=== PATIENT | male | born 1950 | race Caucasian/White ===

== ENCOUNTER 2019-08-10 21:00 | Inpatient (IN) | payer OTHER, MEDICARE ==
--- OUTSIDE RECORDS SUMMARY | 2019-08-10 21:02 | XMS REPORT | Summary of Care ---
:1950 Author Organization [facility] Address [address] [place] [address] Care Team Providers Name Role Phone Hao Horta Primary Care Provider Reason for Referral Radiology Services (Routine) Status Reason Specialty Diagnoses / Referred By Referred To Procedures Contact Contact New Request Diagnostic Diagnoses Left wrist pain Geoffrey Rudolph Radiology Procedures XR WRIST <3 VW LEFT MD Kiara [address] [place] [address] [place] [address] Reason for Visit Reason Comments Wrist Pain Left wrist pain x 1 year old Encounter Details Date Type Department Care Team Description 07/01/2019 Office Visit [facility] Orthopaedic Geoffrey Rudolph Left wrist pain Surgery- Jackson Craig MD (Primary Dx) [address] [facility], [address] [place] [address] [place] [address] [place], [place] [phone] Allergies No Known Allergiesdocumented as of this encounter (statuses as of 07/01/2019) Medications Medication Sig Dispensed Refills Start Date End Date Status metoprolol tartrate Take 25 mg by 2 07/05/2015 Active (LOPRESSOR) 25 mg mouth 2 (two) tablet times daily. ELIQUIS 5 mg tablet TK 1 T PO Q 12 H 0 02/05/2018 Active atorvastatin 40 mg TK 1/2 T PO HS 0 02/05/2018 Active tablet clopidogrel 75 mg TK 1 T PO D 2 02/21/2018 Active tablet fenofibrate 145 mg TK 1 T PO D 2 02/21/2018 Active tablet lidocaine-prilocaine APPLY 2 TO 3 GRAMS 12 03/10/2018 Active 2.5-2.5 % cream TO THE AFFECTED AREA EVERY 12 HOURS NEEDED lisinopril 5 mg tablet TK 1 T PO QD 0 02/21/2018 Active metoprolol succinate TK 1 T PO Q 12 H 0 02/05/2018 Active XL 50 mg 24 hr tablet SLICK PEN NEEDLE 32 INJECT SC QD 0 02/22/2018 Active gauge x 5/32" Ndle metoprolol succinate TK 1 T PO QD 0 01/15/2018 Active XL 25 mg 24 hr tablet diclofenac 75 mg EC Take 1 tablet by 60 tablet 1 03/18/2018 Active tablet mouth 2 (two) times daily with meals. Diclofenac Sodium Apply 2mg to 4mg 100 g 1 07/01/2019 Active (VOLTAREN) 1 % to affected area 4 gelIndications: Left times daily wrist pain documented as of this encounter (statuses as of 07/01/2019) Active Problems Not on filedocumented as of this encounter (statuses as of 07/01/2019) Social History Tobacco Use Types Packs/Day Years Used Date Former Smoker Smokeless Tobacco: Never Used Alcohol Use Drinks/Week oz/Week Comments No 0 Standard drinks or equivalent 0.0 Sex Assigned at Date Recorded Not on file Job Start Date Occupation Industry Not on file Not on file Not on file Travel History Travel Start Travel End No recent travel history available. documented as of this encounter Last Filed Vital Signs Vital Sign Reading Time Taken Comments Blood Pressure 99/64 07/01/2019 10:22 AM CDT Pulse 54 07/01/2019 10:22 AM CDT Temperature - - Respiratory Rate 18 07/01/2019 10:22 AM CDT Oxygen Saturation - - Inhaled Oxygen Concentration - - Weight 107 kg (236 lb) 07/01/2019 10:22 AM CDT Height 175.3 cm (5' 9") 07/01/2019 10:22 AM CDT Body Mass Index 34.85 07/01/2019 10:22 AM CDT documented in this encounter Progress Notes Geoffrey Rudolph MD - 07/01/2019 10:15 AM CDT Tyrone Orozco is a 68 year old male Chief Complaint Patient presents with Wrist Pain Left wrist pain x 1 year old Vitals: 07/01/19 1022 BP: 99/64 BP Location: Right arm Patient Position: Sitting BP CUFF SIZE: Adult Large Pulse: 54 Resp: 18 Weight: 107 kg (236 lb) Height: 69" (175.3 cm) [facility] [address] [place] [address] [address] Patient presents with left wrist pain x 1 year No injury All Vitals taken, allergies and all medications reviewed, fall risk assessed. Pain level 7/10. ALYSSA TRISTAN MA 07/01/2019 10:29 AM Tyrone Orozco is a 68 year old male. 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 Wrist Pain The pain is present in the left wrist. This is a chronic problem. The current episode started more than 1 year ago. There has been no history of extremity trauma. The problem occurs constantly. The problem has been gradually worsening. The quality of the pain is described as aching, sharp and pounding. The pain is at a severity of 6/10. The pain is moderate. Associated symptoms include an inability to bear weight, joint locking, joint swelling, a limited range of motion and stiffness. The symptoms are aggravated by activity. He has tried rest, movement and acetaminophen for the symptoms. The treatment provided mild relief. Allergies Tyrone has No Known Allergies. Medications Outpatient Medications Prior to Visit Medication Sig Dispense Refill atorvastatin 40 mg tablet TK 1/2 T PO HS 0 ELIQUIS 5 mg tablet TK 1 T PO Q 12 H 0 lidocaine-prilocaine 2.5-2.5 % cream APPLY 2 TO 3 GRAMS TO THE AFFECTED AREA EVERY 12 HOURS NEEDED 12 lisinopril 5 mg tablet TK 1 T PO QD 0 metoprolol succinate XL 50 mg 24 hr tablet TK 1 T PO Q 12 H 0 clopidogrel 75 mg tablet TK 1 T PO D 2 diclofenac 75 mg EC tablet Take 1 tablet by mouth 2 (two) times daily with meals. 60 tablet 1 fenofibrate 145 mg tablet TK 1 T PO D 2 metoprolol succinate XL 25 mg 24 hr tablet TK 1 T PO QD 0 SLICK PEN NEEDLE 32 gauge x 5/32" Ndle INJECT SC QD 0 metoprolol tartrate (LOPRESSOR) 25 mg tablet Take 25 mg by mouth 2 (two) times daily. 2 No facility-administered medications prior to visit. Histories Past Medical History: Diagnosis Date Atrial fibrillation events Bladder carcinoma Past Surgical History: Procedure Laterality Date OTHER 2014 ablation to fix A-FIB OTHER removal of carcinoma on bladder Social History Socioeconomic History Marital status: Spouse name: Not on file Number of children: Not on file Years of education: Not on file Highest education level: Not on file Occupational History Not on file Social Needs Financial resource strain: Not on file Food insecurity: Worry: Not on file Inability: Not on file Transportation needs: Medical: Not on file Non-medical: Not on file Tobacco Use Smoking status: Former Smoker Smokeless tobacco: Never Used Substance and Sexual Activity Alcohol use: No Alcohol/week: 0.0 oz Drug use: Not on file Sexual activity: Not on file Lifestyle Physical activity: Days per week: Not on file Minutes per session: Not on file Stress: Not on file Relationships Social connections: Talks on phone: Not on file Gets together: Not on file Attends lutheran service: Not on file Active member of club or organization: Not on file Attends meetings of clubs or organizations: Not on file Relationship status: Not on file Intimate partner violence: Fear of current or ex partner: Not on file Emotionally abused: Not on file Physically abused: Not on file Forced sexual activity: Not on file Other Topics Concern Not on file Social History Narrative Not on file Family History Problem Relation Age of Onset Heart Father Review of Systems Constitutional: Negative. HENT: Negative. Eyes: Negative. Respiratory: Negative. Breasts: Negative. Cardiovascular: Negative. Gastrointestinal: Negative. Genitourinary: Negative. Musculoskeletal: Positive for joint swelling and stiffness. Skin: Negative. Neurological: Negative. Psychiatric/Behavioral: Negative. Endocrine: Endocrine negative Vital Signs BP 99/64 (BP Location: Right arm, Patient Position: Sitting, BP CUFF SIZE: Adult Large) | Pulse 54| Resp 18 | Ht 69" (175.3 cm) | Wt 107 kg (236 lb) | BMI 34.85 kg/m Physical Exam Musculoskeletal: Left wrist: He exhibits decreased range of motion, tenderness and bony tenderness. He exhibits no swelling, no effusion, no crepitus, no deformity and no laceration. General: Well-developed well-nourished oriented to person place and time HEENT normocephalic atraumatic atraumatic pupils equal round reactive to light extraocular muscles intact Cervical thoracic and lumbar spine without focal deficit normal kyphosis and lordosis Chest clear to auscultation and percussion Cardiovascular regular rate and rhythm without gallop rub or murmur soft without organomegaly Normal bowel sounds Neurologic: Focal myotome or dermatomal deficits Vascular: Intact symmetrical bilateral upper and lower extremities Skin without stasis varicosities or breakdown Extremities without cyanosis clubbing or edema Lymphatics no peripheral lymphedema Psych normal mood and affect. Neurovascular function is intact. To include brisk capillary refill warm pink skin active motor function and sensory function intact. Nursing note and vitals reviewed. 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 Patient placed into a velcro wrist brace to be worn for comfort. He should rest for sometime to allow the pain to subside. Prescription OD diclofenac gel for topical application to pain site. Follow up prn. documented in this encounter Plan of Treatment Health Maintenance Due Date Last Done Comments HEPATITIS C (HCV) SCREEN 1950 DTaP,Tdap,and Td Vaccines (1 - Tdap) 1969 COLONOSCOPY 2000 Zoster Recombinant Vaccine (SHINGRIX) (1 of 2) 2000 LUNG CANCER SCREEN: Recommended for age 55-80 with 30 + 2005 pack year history Medicare Wellness Visit 2015 PNEUMOCOCCAL VACCINES 65+ (1 of 2 - PCV13) 2015 INFLUENZA VACCINE 07/31/2019 documented as of this encounter Results XR WRIST <3 VW LEFT (07/01/2019 10:26 AM CDT) Specimen Narrative Performed At [facility] PACS Performing Organization Address City/State/Zipcode Phone Number PACS documented in this encounter Visit Diagnoses Diagnosis Left wrist pain - Primary Pain in joint, forearm documented in this encounter Insurance Payer Benefit Plan / Subscriber ID Effective Phone Address Type Group Dates MEDICARE MEDICARE PART xxxxxxxxxx 2015-Pr [phone] [address] Medicare A & B esent [id number] [place] [id number] [facility] [id number] 2019-Pre [address] Medicare HEALTHCARE HEALTHCARE sent [id number] Supplement MEDICARE [place] SUPPLEMENT [place] [id number] ([place]) [place] [address] documented as of this encounter
--- OUTSIDE RECORDS SUMMARY | 2019-08-10 21:02 | XMS REPORT | Summary of Care ---
:1950 Author Organization [facility] - [facility] Address [address] [place] [address] Care Team Providers Name Role Phone Hao Horta Primary Care Provider Encounter Details Date Type Department Care Team Description 07/01/2019 Orders Only [facility] Doctor Unassigned, No [address] [facility] [place] [address] [address] [place] [address] Allergies No Known Allergiesdocumented as of this [...] mouth 2 (two) times daily with meals. documented as of this encounter (statuses as [...] of this encounter Last Filed Vital Signs Not on filedocumented in this encounter Plan of Treatment Date Type Specialty Care Team Description 07/01/2019 Office Visit Orthopedic Surgery Geoffrey Rudolph MD [address] [place] [phone] Health Maintenance Due Date Last Done Comments [...] VACCINE 07/31/2019 documented as of this encounter Procedures Procedure Name Priority Date/Time Associated Diagnosis Comments CONSENT/REFUSAL FOR Routine 07/01/2019 10:11 AM DIAGNOSIS AND TREATMENT CDT ASSIGNMENT OF BENEFITS Routine 07/01/2019 10:10 AM CDT documented in this encounter Results Not on filedocumented in this encounter Insurance Payer Benefit Plan / Subscriber ID Effective Dates Phone Address Type Group MEDICARE MEDICARE PART xxxxxxxxxx 2015-Layla [phone] [address] Medicare A & B nt 2 [id number] [place] [id number] documented as of this encounter
--- OUTSIDE RECORDS SUMMARY | 2019-08-10 21:02 | XMS REPORT | Summary of Care ---
:1950 Author Organization [facility] - [facility] Address [address] [place] [address] Care Team Providers Name Role Phone Hao Horta Primary Care Provider Reason for Referral Radiology Services (Routine) Status Reason Specialty Diagnoses / Referred By Referred To Procedures Contact Contact New Request Diagnostic Diagnoses Left wrist pain Geoffrey Rudolph Radiology Procedures XR WRIST <3 VW LEFT MD Kiara [address] [place] [address] [place] [address] [place] [address] Reason for Visit Reason Comments Wrist Pain Left wrist pain x 1 year old Encounter Details Date Type Department Care Team Description 07/01/2019 Office Visit [facility] Orthopaedic Geoffrey Rudolph Left wrist pain Surgery- Jackson Craig MD (Primary Dx) [address] [facility], [address] [place] [address] [place] [phone] Allergies No Known Allergiesdocumented as of [...] kg (236 lb) Height: 69" (175.3 cm) [facility] [address] [place] [address] [address] Patient presents with left wrist [...] file Gets together: Not on file Attends uatsdin service: Not on file Active member of [...] BOX Medicare A & B esent [id number] [place] [phone] [facility] [id number] 2019-Pre [address] Medicare HEALTHCARE HEALTHCARE sent [id number] Supplement MEDICARE [place] SUPPLEMENT [place]JAS [id number] ([place]) [place] [address] documented as of this encounter
--- OUTSIDE RECORDS SUMMARY | 2019-08-10 21:03 | XMS REPORT ---
:1950 Author Organization [facility] Address [address] [place] [address] Dr. Calix [address] [place] [address] Care Team Providers Name Role Phone Unavailable Unavailable Unavailable Problems This patient has no known problems. Allergies, Adverse Reactions, Alerts This patient has no known allergies or adverse reactions. Medications This patient has no known medications.
--- OUTSIDE RECORDS SUMMARY | 2019-08-10 21:03 | XMS REPORT | Summary of Care ---
:1950 Author Organization [facility] Address [address] [place] [address] Care Team Providers Name Role Phone Hao Horta Primary Care Provider Reason for Visit Reason Comments Abdominal Pain mid abdomen since 130pm 08/10/19 Encounter Details Date Type Department Care Team Description 08/10/2019 Nurse Visit [facility] Unknown, Attending Periumbilical abdominal Urgent Care Nurse, [facility] pain (Primary Dx) [address] [place] [phone] Allergies No Known Allergiesdocumented as of this encounter (statuses as of 08/10/2019) Medications Medication Sig Dispensed Refills Start Date [...] as of this encounter (statuses as of 08/10/2019) Active Problems Not on filedocumented as of this encounter (statuses as of 08/10/2019) Social History Tobacco Use Types Packs/Day Years [...] Sign Reading Time Taken Comments Blood Pressure 163/83 08/10/2019 8:35 PM CDT Pulse 60 08/10/2019 8:35 PM CDT Temperature 36.4 C (97.6 F) 08/10/2019 8:35 PM CDT Respiratory Rate 18 08/10/2019 8:35 PM CDT Oxygen Saturation 98% 08/10/2019 8:35 PM CDT Inhaled Oxygen Concentration - - Weight 108.4 kg (239 lb) 08/10/2019 8:35 PM CDT Height 175.3 cm (5' 9") 08/10/2019 8:35 PM CDT Body Mass Index 35.29 08/10/2019 8:35 PM CDT documented in this encounter Progress Notes Elzbieta Contreras, RN - 08/10/2019 8:15 PM CDT complaining of Chief Complaint Patient presents with Abdominal Pain mid abdomen since 130pm 08/10/19 . Patient reports since 1330 08/10/19 intermittent dull deep pain that comes in waves. Patient reports history of Patient AAOx4, ambulatory, eupneic, skin pink/warm/dry, no acute distress noted. BP (!) 163/83 | Pulse 60 | Temp 36.4 C (97.6 F) (Oral) | Resp 18 | Ht 5 ' 9" (1.753 m) | Wt 239 lb (108.4 kg) | SpO2 98% | BMI 35.29 kg/m Patient encouraged to seek emergency medical treatment at local emergency room for further evaluation. Case discussed with MD Tom who agrees with treatment plan recommendations. Patient verbalizesunderstanding and states he will be seen at [facility]. Ambulance transport by 911 EMS offered to patient but refused. Left via private vehicle with SO Patient leaves urgent care @ 8:30 en route to [facility] AAOx4, ambulatory, in no acute distress. documented in this encounter Plan of Treatment [...] of 2 - PCV13) 2015 INFLUENZA VACCINE (#1) 2019 documented as of this encounter Results Not on filedocumented in this encounter Visit Diagnoses Diagnosis Periumbilical abdominal pain - Primary Abdominal pain, periumbilic documented in this encounter Insurance Payer Benefit Plan / Subscriber ID Effective Phone Address Type Group Dates MEDICARE MEDICARE PART xxxxxxxxxxx 2015-Pr [phone] [address] Medicare A & B esent [id number] [place] [id number] [facility] [id number] 2019-Pre [address] Medicare HEALTHCARE HEALTHCARE sent [id number] Supplement MEDICARE [place] SUPPLEMENT [place] [id number] documented as of this encounter
--- OUTSIDE RECORDS SUMMARY | 2019-08-10 21:03 | XMS REPORT | Summary of Care ---
:1950 Author Organization [facility] Address [address] [place] [address] Care Team Providers Name Role Phone Hao Horta Primary Care Provider Reason for Visit Radiology Services (Routine) Status Reason Specialty Diagnoses / Referred By Referred To Procedures Contact Contact New Request Diagnostic Diagnoses Left wrist pain Geoffrey Rudolph Radiology Procedures XR WRIST <3 VW LEFT MD Kiara [address] [place] [address] Encounter Details Date Type Department Care Team Description 07/01/2019 [facility] [address] [place] [address] [place], [place] [phone] Allergies No Known Allergiesdocumented as of this encounter (statuses as of 07/02/2019) Medications Medication Sig Dispensed Refills Start Date [...] as of this encounter (statuses as of 07/02/2019) Active Problems Not on filedocumented as of this encounter (statuses as of 07/02/2019) Social History Tobacco Use Types Packs/Day Years [...] filedocumented in this encounter Plan of Treatment Health [...] Procedure Name Priority Date/Time Associated Diagnosis Comments XR WRIST <3 VW LEFT Routine 07/01/2019 10:26 AM Left wrist pain Results for this CDT procedure are in the results section. documented in this encounter Results XR WRIST <3 VW LEFT (07/01/2019 10:26 AM CDT) Specimen Narrative Performed At [facility] PACS Performing Organization Address City/State/Zipcode Phone Number PACS documented in this encounter Visit Diagnoses Diagnosis Left wrist pain Pain in joint, forearm documented in this encounter Insurance Payer Benefit Plan / Subscriber ID Effective Phone Address Type Group Dates MEDICARE MEDICARE PART xxxxxxxxxx 2015-Pr [phone] [address] Medicare A & B esent [id number] [place] [phone] [facility] [id number] 2019-Pre [address] Medicare HEALTHCARE HEALTHCARE sent [id number] Supplement MEDICARE [place] SUPPLEMENT [place] [id number] documented as of this encounter
[2019-08-10] MEDS ORDERED: NA CHLORIDE 0.9% 1,000 ML ONE (21:55)
[2019-08-10] MEDS ORDERED: MORPHINE 4 MG/ML SYR ONE (21:55)
[2019-08-10] MEDS ORDERED: ONDANSETRON 4 MG/2 ML VIAL ONE (21:55)
[2019-08-10 22:09] LABS: Absolute Lymphocytes (CBC) 1.7 K/uL (0.7-4.9); Basophils % 0.3 % (0-1.3); Hematocrit 48.7 % (39.6-49.0); Lymphocytes % 10.9 % (15.3-44.8); MPV 9.6 fL (7.6-11.3); RBC Red Blood Cell Count 5.87 M/uL (4.33-5.43)
[2019-08-10 22:27] LABS: Albumin 4.3 g/dL (3.4-5.0); Bilirubin Direct 0.2 mg/dL (0-0.2); Bilirubin Total 0.7 mg/dL (0.2-1.0); Potassium 3.9 mmol/L (3.5-5.1); Protein, Total 7.5 g/dL (6.4-8.2)
--- NOTE | 2019-08-10 23:01 | RAD REPORT ---
EXAM DESCRIPTION: US - Abdomen Exam Limited - 08/10/2019 10:12 pm CLINICAL HISTORY: epigastric abdominal pain COMPARISON: <Comparisons> FINDINGS: The gallbladder demonstrates no gallstones. No pericholecystic fluid or gallbladder wall t hickening. The common bile duct is normal measuring 4 mm. The liver demonstrates no findings of intrahepatic biliary dilatation. IMPRESSION: Unremarkable examination.
[2019-08-11] MEDS ORDERED: METRONIDAZOLE 500mg IVPB 500 MG/100 ML BAG IV ONE (00:13)
[2019-08-11] MEDS ORDERED: MORPHINE 4 MG/ML SYR ONE (00:13)
[2019-08-11] MEDS ORDERED: CIPROFLOXACIN 400mg IV 400 MG/200 ML BAG IV ONE (00:13)
[2019-08-11] MEDS ORDERED: NA CHLORIDE 0.9% 500 ML ONE (00:13)
--- NOTE | 2019-08-11 00:15 | ER ---
Nurse's Notes [facility] Name: Tyrone Orozco Age: 68 yrs Sex: Male : 1950 Arrival Date: 08/10/2019 Time: 21:18 Bed 24 Private MD: Diagnosis: Bowel Obstruction Presentation: 08/10 21:22 Presenting complaint: Patient states: upper abd cramping that began today at 1400. Pt aa5 denies nausea/vomiting/diarrhea. Transition of care: patient was not received from another setting of care. Onset of symptoms was August 10, 2019. Risk Assessment: Do you want to hurt yourself or someone else? Patient reports no desire to harm self or others. Initial Sepsis Screen: Does the patient meet any 2 criteria? No. Patient's initial sepsis screen is negative. Does the patient have a suspected source of infection? No. Patient's initial sepsis screen is negative. Care prior to arrival: None. 21:22 Acuity: SHRUTI 3 aa5 21:22 Method Of Arrival: Ambulatory aa5 Historical: - Allergies: 21:24 No Known Allergies; aa5 - PMHx: 21:24 Atrial Fib; Bladder Cancer; Myocardial infarction; aa5 - PSHx: 21:24 Hernia repair; Bladder tumors removed; Heart stents; aa5 - Immunization history:: Adult Immunizations unknown. - Social history:: Smoking status: Patient/guardian denies using tobacco. - Ebola Screening: : No symptoms or risks identified at this time. Screenin:58 Abuse screen: Denies threats or abuse. Denies injuries from another. Nutritional rv screening: No deficits noted. Tuberculosis screening: No symptoms or risk factors identified. Fall Risk None identified. Assessment: 21:58 General: Appears in no apparent distress. uncomfortable, Behavior is calm, cooperative. rv Pain: Complains of pain in abdomen. Neuro: Level of Consciousness is awake, alert, obeys commands, Oriented to person, place, time, situation. Cardiovascular: Patient's skin is warm and dry. Respiratory: Airway is patent. GI: Bowel sounds present X 4 quads. Abd is soft and non tender X 4 quads. : No signs and/or symptoms were reported regarding the genitourinary system. EENT: No signs and/or symptoms were reported regarding the EENT system. Derm: Skin is intact. Musculoskeletal: No signs and/or symptoms reported regarding the musculoskeletal system. Vital Signs: 21:24 BP 139 / 60; Pulse 58; Resp 18 S; Temp 98.2(O); Pulse Ox 94% on R/A; Weight 108.86 kg aa5 (R); Height 5 ft. 9 in. (175.26 cm) (R); Pain 6/10; 23:07 BP 113 / 69; Pulse 58; Resp 18; Pulse Ox 98% on R/A; mg2 08/11 00:00 BP 117 / 70; Pulse 57; Resp 16; Pulse Ox 97% on R/A; rv 01:41 BP 105 / 58; Pulse 58; Resp 15; Pulse Ox 97% on R/A; rv 08/10 21:24 Body Mass Index 35.44 (108.86 kg, 175.26 cm) aa5 ED Course: 08/10 21:18 Patient arrived in ED. aa5 21:23 Triage completed. aa 21:23 Arm band placed on. aa 21:29 Peng Rose PA is PHCP. [facility] 21:29 Jarocho Winn MD is Attending Physician. [facility] 21:36 Jori Serna RN is Primary Nurse. rv 21:57 Initial lab(s) drawn, by ny, sent to lab. Inserted saline lock: 20 gauge in right rv antecubital area, using aseptic technique. Blood collected. 21:58 Patient has correct armband on for positive identification. Bed in low position. Call rv light in reach. Side rails up X 1. Pulse ox on. NIBP on. 22:13 US Abdomen Limited In Process Unspecified. EDMS 22:33 EKG done, by ED staff. lt1 22:[address] via wheelchair. eh 22:50 CT completed. Patient tolerated procedure well. Patient moved back from CT. eh 23:13 CT Abd/Pelvis - IV Contrast Only In Process Unspecified. EDMS 08/11 00:13 Thao Serrano MD is Hospitalizing Provider. [facility] 00:30 No provider procedures requiring assistance completed. NGT: inserted 16 Fr. via right rv nare. verified placement of air over stomach, verified return of gastric contents, to intermittent suction. Returned gastric contents. Patient tolerated well. 00:30 Patient admitted, IV remains in place. rv Administered Medications: 08/10 21:56 Drug: NS 0.9% 1000 ml Route: IV; Rate: 1 bolus; Site: right antecubital; rv 08/11 01:33 Follow up: IV Status: Completed infusion; IV Intake: 100ml rv 08/10 21:57 Drug: Zofran 4 mg Route: IVP; Site: right antecubital; rv 08/11 01:37 Follow up: Response: No adverse reaction rv 08/10 21:57 Drug: morphine 4 mg {Note: RASS 0.} Route: IVP; Site: right antecubital; rv 08/11 01:38 Follow up: Response: Marked relief of symptoms; RASS: Alert and Calm (0) rv 00:30 Drug: Cipro 400 mg Volume: 200 ml; Route: IVPB; Infused Over: 60 mins; Site: right rv antecubital; 01:33 Follow up: IV Status: Completed infusion rv 00:30 Drug: Flagyl 500 mg Volume: 100 ml; Route: IVPB; Rate: 200 ml/hr; Infused Over: 30 rv mins; Site: right antecubital; 01:37 Follow up: IV Status: Completed infusion rv 00:30 Drug: morphine 4 mg {Note: RASS 0.} Route: IVP; Site: right antecubital; rv 01:38 Follow up: Response: Marked relief of symptoms rv Intake: 01:33 IV: 100ml; Total: 100ml. rv Outcome: 00:13 Decision to Hospitalize by Provider. [facility] 01:39 Admitted to Tele accompanied by nurse, via wheelchair, room 412, with chart, Report rv called to TESSY DALEY 01:39 Condition: good 01:39 Instructed on the need for admit. 01:46 Patient left the ED. rv Signatures: Dispatcher [employer] EDMS Peng Rose PA PA jmEdward De Audri RN RN aa5 Patel Manuel, RN RN mg2 Jori Serna RN RN rv Joanie Tan lt1 Corrections: (The following items were deleted from the chart) 08/10 21:26 21:24 BP 139 / 60; Pulse 58bpm; Resp 18bpm; Spontaneous; Pulse Ox 94% RA; Temp 98.2F aa5 Oral; 108.86 kg Reported; aa5
--- NOTE | 2019-08-11 00:16 | EDPHYS ---
Physician Documentation [facility] Name: Tyrone Orozco Age: 68 yrs Sex: Male : 1950 Arrival Date: 08/10/2019 Time: 21:18 Bed 24 Private MD: ED Physician Jarocho Winn HPI: 08/10 21:54 This 68 yrs old Male presents to ER via Ambulatory with complaints of jmm Abdominal Pain. 21:54 The patient presents with abdominal pain in the epigastric area. Onset: The jmm symptoms/episode began/occurred gradually, today. The symptoms do not radiate. The symptoms are described as achy, crampy, sharp. Modifying factors: The symptoms are alleviated by nothing, the symptoms are aggravated by nothing. This is a 68 year old male with at history of atrial fibrillation, ID that presents to the ED with complaints of episgastric chest pain. Patient states having hernia repair in the past. Denies vomiting or diarrhea. . Historical: - Allergies: 21:24 No Known Allergies; aa5 - PMHx: 21:24 Atrial Fib; Bladder Cancer; Myocardial infarction; aa5 - PSHx: 21:24 Hernia repair; Bladder tumors removed; Heart stents; aa5 - Immunization history:: Adult Immunizations unknown. - Social history:: Smoking status: Patient/guardian denies using tobacco. - Ebola Screening: : No symptoms or risks identified at this time. ROS: 21:54 Constitutional: Negative for fever, chills, and weight loss, Cardiovascular: Negative jmm for chest pain, palpitations, and edema, Respiratory: Negative for shortness of breath, cough, wheezing, and pleuritic chest pain. 21:54 Abdomen/GI: Positive for abdominal pain. 21:54 All other systems are negative. Exam: 21:54 Constitutional: This is a well developed, well nourished patient who is awake, alert, jmm and in no acute distress. Head/Face: atraumatic. Eyes: EOMI, no conjunctival erythema appreciated ENT: Moist Mucus Membranes Neck: Trachea midline, Supple Chest/axilla: Normal chest wall appearance and motion. Cardiovascular: Regular rate and rhythm. No edema appreciated Respiratory: Normal respirations, no respiratory distress appreciated 21:54 Abdomen/GI: Inspection: abdomen appears normal, Bowel sounds: normal, Palpation: soft, moderate abdominal tenderness, in the epigastric area and right upper quadrant. 21:54 Back: ROM is normal. 21:54 Musculoskeletal/extremity: ROM: intact in all extremities. 21:54 Skin: Appearance: Color: normal in color. 21:54 Neuro: Orientation: is normal, Mentation: is normal, Memory: is normal. 21:54 Psych: Behavior/mood is pleasant, cooperative. Vital Signs: 21:24 BP 139 / 60; Pulse 58; Resp 18 S; Temp 98.2(O); Pulse Ox 94% on R/A; Weight 108.86 kg aa5 (R); Height 5 ft. 9 in. (175.26 cm) (R); Pain 6/10; 23:07 BP 113 / 69; Pulse 58; Resp 18; Pulse Ox 98% on R/A; mg2 08/11 00:00 BP 117 / 70; Pulse 57; Resp 16; Pulse Ox 97% on R/A; rv 01:41 BP 105 / 58; Pulse 58; Resp 15; Pulse Ox 97% on R/A; rv 08/10 21:24 Body Mass Index 35.44 (108.86 kg, 175.26 cm) aa5 MDM: 08/10 21:36 Patient medically screened. [facility] 08/11 00:11 Data reviewed: vital signs, nurses notes. Counseling: I had a detailed discussion with estevan the patient and/or guardian regarding: the historical points, exam findings, and any diagnostic results supporting the discharge/admit diagnosis, radiology results, the need for further work-up and treatment in the hospital. ED course: I discussed the patient with Dr. Cadet whom will consult on the admission. I discussed the patient with Dr. Serrano whom accepted admission. . 08/10 21:44 Order name: Basic Metabolic Panel; Complete Time: 22:32 [facility] 08/10 21:44 Order name: CBC with Diff; Complete Time: 22:32 [facility] 08/10 21:44 Order name: Creatinine for Radiology; Complete Time: 22:32 [facility] 08/10 21:44 Order name: Hepatic Function; Complete Time: 22:32 [facility] 08/10 21:44 Order name: Lipase; Complete Time: 22:32 [facility] 08/10 21:48 Order name: Troponin (emerg Dept Use Only); Complete Time: 22:32 [facility] 08/11 01:05 Order name: CBC with Automated Diff [facility] 08/11 01:05 Order name: CBC with Automated Diff [facility] 08/11 01:05 Order name: Comprehensive Metabolic Panel [facility] 08/11 01:06 Order name: Comprehensive Metabolic Panel [facility] 08/11 01:06 Order name: Lipase [facility] 08/11 01:06 Order name: Lipase [facility] 08/11 01:06 Order name: Magnesium [facility] 08/11 01:06 Order name: Magnesium [facility] 08/10 21:44 Order name: CT Abd/Pelvis - IV Contrast Only [facility] 08/10 21:44 Order name: US Abdomen Limited; Complete Time: 23:25 [facility] 08/11 01:05 Order name: CONS Physician Consult [facility] 08/11 01:05 Order name: NPO [facility] 08/11 01:06 Order name: Phosphorus [facility] 08/11 01:06 Order name: Phosphorus [facility] 08/11 01:06 Order name: Protime (+INR) [facility] 08/11 01:06 Order name: Protime (+INR) [facility] 08/11 01:06 Order name: PTT, Activated Partial Thromb [facility] 08/11 01:06 Order name: PTT, Activated Partial Thromb [facility] 08/10 21:44 Order name: IV Saline Lock; Complete Time: 21:52 [facility] 08/10 21:44 Order name: Labs collected and sent; Complete Time: 21:52 [facility] 08/10 21:48 Order name: EKG - Nurse/Tech; Complete Time: 22:27 [facility] 08/10 23:57 Order name: NG Tube; Complete Time: 01:29 [facility] Administered Medications: 08/10 21:56 Drug: NS 0.9% 1000 ml Route: IV; Rate: 1 bolus; Site: right antecubital; 08/11 01:33 Follow up: IV Status: Completed infusion; IV Intake: 100ml rv 08/10 21:57 Drug: Zofran 4 mg Route: IVP; Site: right antecubital; rv 08/11 01:37 Follow up: Response: No adverse reaction rv 08/10 21:57 Drug: morphine 4 mg {Note: RASS 0.} Route: IVP; Site: right antecubital; 08/11 01:38 Follow up: Response: Marked relief of symptoms; RASS: Alert and Calm (0) rv 00:30 Drug: Cipro 400 mg Volume: 200 ml; Route: IVPB; Infused Over: 60 mins; Site: right rv antecubital; 01:33 Follow up: IV Status: Completed infusion rv 00:30 Drug: Flagyl 500 mg Volume: 100 ml; Route: IVPB; Rate: 200 ml/hr; Infused Over: 30 rv mins; Site: right antecubital; 01:37 Follow up: IV Status: Completed infusion rv 00:30 Drug: morphine 4 mg {Note: RASS 0.} Route: IVP; Site: right antecubital; rv 01:38 Follow up: Response: Marked relief of symptoms rv Disposition: 08/11/19 00:13 Hospitalization ordered by Thao Serrano for Inpatient Admission. Preliminary diagnosis is Bowel Obstruction. - Bed requested for Telemetry/MedSurg (Inpatient). - Status is Inpatient Admission. rv - Condition is Stable. - Problem is an acute exacerbation. - Symptoms have improved. UTI on Admission? No Addendum: 08/15/2019 08:24 Co-signature as Attending Physician, Jarocho Winn MD I agree with the assessment and c gill plan of care. Signatures: Dispatcher [employer] EDMS Kendra Blanca RN RN mw Anderson, Corey, MD MD cha Mickail, Joel, PA PA Daria Lott RN RN aa5 Jori Serna RN RN rv Corrections: (The following items were deleted from the chart) 08/11 00:43 00:13 Hospitalization Ordered by Thao Serrano MD for Inpatient Admission. Preliminary mw diagnosis is Bowel Obstruction. Bed requested for Telemetry/MedSurg (Inpatient). Status is Inpatient Admission. Condition is Stable. Problem is an acute exacerbation. Symptoms have improved. UTI on Admission? No. [facility] 01:46 00:43 08/11/2019 00:13 Hospitalization Ordered by Thao Serrano MD for Inpatient rv Admission. Preliminary diagnosis is Bowel Obstruction. Bed requested for Telemetry/MedSurg (Inpatient). Status is Inpatient Admission. Condition is Stable. Problem is an acute exacerbation. Symptoms have improved. UTI on Admission? No. barb
[2019-08-11] MEDS ORDERED: ONDANSETRON 4 MG/2 ML VIAL IV PRN (01:01)
[2019-08-11] MEDS ORDERED: ACETAMINOPHEN 500 MG TAB PO PRN (01:01)
[2019-08-11 02:07] VITALS: O2SAT 97
[2019-08-11 03:09] VITALS: BMI 35.2
[2019-08-11] MEDS: NA CHLORIDE 0.9% 1,000 ML IV SCH ×4 (03:25→23:35)
[2019-08-11] MEDS: HYDROMORPHONE HCL 1 MG/ML INJ IV PRN ×2 (04:00→14:54)
[2019-08-11] MEDS ORDERED: BENZOCAINE SPRAY 57 GM BTL TOP ONE (04:11)
[2019-08-11] MEDS: METRONIDAZOLE 500mg IVPB 500 MG/100 ML BAG IV SCH ×4 (06:00→23:35)
[2019-08-11] MEDS ORDERED: PHENOL 1.4% ORAL SPRAY 180ML MM ONE (07:45)
[2019-08-11] MEDS ORDERED: PNEUMOCOCCAL VACCINE 0.5 ML IMVAC ONE (08:00)
--- NOTE | 2019-08-11 09:07 | P.HP ---
Certification for Inpatient Patient admitted to: Inpatient With expected LOS: >2 Midnights Patient will require the following post-hospital care: None Practitioner: I am a practitioner with admitting privileges, knowledge of patient current condition, hospital course, and medical plan of care. Services: Services provided to patient in accordance with Admission requirements found in Title 42 Section 412.3 of the Code of Federal Regulations Patient History Date of Service: 08/11/19 Reason for admission: Abdominal distention and discomfort History of Present Illness: Patient is a 68-year-old gentleman who came into the hospital with abdominal pain. Patient was having significant abdominal distention. Patient came into the ER for further evaluation. Patient had NG tube placed as imaging studies revealed a small-bowel obstruction. Patient has had umbilical hernia repair as well as bilateral inguinal hernia repair. This was done a few years ago. Patient states that patient has not had any flatus. Patient has developed significant abdominal distention. Patient will be admitted to the hospital for further evaluation. Allergies No Known Allergies Allergy (Verified 08/11/19 02:56) Home Medications: Apixaban [Eliquis] 5 mg PO DAILY 08/11/19 Aspirin Chewable [Aspirin Chewable*] 81 mg PO DAILY 08/11/19 Atorvastatin Calcium [Lipitor] 10 mg PO DAILY 08/11/19 Insulin Aspart [Novolog] 7 unit SQ TIDWM 08/11/19 Insulin Degludec [Tresiba Flextouch U-200] 36 unit SQ DAILY 08/11/19 Lisinopril 5 mg PO DAILY 08/11/19 Metoprolol Succinate [Toprol Xl] 50 mg PO DAILY 08/11/19 - Past Medical/Surgical History Has patient received pneumonia vaccine in the past: No Diabetic: No -: Atrial fibrillation -: HTN -: [place] -: Bladder CA -: Post Nasal Drip -: Hernia Rx -: Cardiac Stents -: Bladder tumor removed - Family History Father Family History: Reviewed- Non-Contributory - Social History Smoking Status: Unknown if ever smoked Place of Residence: Home Review of Systems 10-point ROS is otherwise unremarkable Physical Examination - Vital Signs Temperature: 97.1 F Blood Pressure: 132/68 Pulse: 62 Respirations: 18 Pulse Ox (%): 98 - Physical Exam General: Alert, In no apparent distress, Oriented x3 HEENT: Atraumatic, PERRLA, Mucous membr. moist/pink, EOMI, Sclerae nonicteric Neck: Supple, 2+ carotid pulse no bruit, No LAD, Without JVD or thyroid abnormality Respiratory: Clear to auscultation bilaterally, Normal air movement Cardiovascular: Regular rate/rhythm, Normal S1 S2, No murmurs Gastrointestinal: No guarding, Absent bowel sounds, Distended, Tenderness, Rebound Musculoskeletal: No clubbing, No swelling, No tenderness Integumentary: No rashes Neurological: Normal gait, Normal speech, Normal strength at 5/5 x4 extr, Normal tone, Sensation intact, Cranial nerves 3-12 intact, Normal affect Lymphatics: No axilla or inguinal lymphadenopathy - Studies Laboratory Data (last 24 hrs) 08/10/19 21:50: Creatinine 1.10 08/10/19 21:50: WBC 15.3 H, Hgb 15.9, Hct 48.7, Plt Count 176 08/10/19 21:50: Sodium 141, Potassium 3.9, BUN 22 H, Creatinine 1.11, Glucose 112 H, Total Bilirubin 0.7, AST 19, ALT 32, Alkaline Phosphatase 103, Lipase 94 Assessment & Plan - Problems (Diagnosis) (1) Small bowel obstruction Current Visit: Yes Status: Acute (2) History of umbilical hernia repair Current Visit: Yes Status: Acute (3) History of inguinal hernia repair Current Visit: Yes Status: Acute - Plan Plan: 1. IV hydration 2. Pain control 3. Surgery consultation 4. NG tube to suction 5. IV antibiotics 6. Repeat abdominal films 7. GI and DVT prophylaxis Discharge Plan: Home Plan to discharge in: Greater than 2 days - Advance Directives Does patient have a Living Will: Yes Does patient have a Durable POA for Healthcare: No - Code Status/Comfort Care Code Status Assessed: Yes Code Status: Full Code Critical Care: No Time Spent Managing PTS Care (In Minutes): 45
--- NOTE | 2019-08-11 11:09 | EKG ---
Test Date: 2019-08-10 Test Time: 22:27:21 [employer]: RV MEASUREMENT RESULTS: Intervals: Rate: 57 GA: 188 QRSD: 106 QT: 456 QTc: 443 [place]: P: 18 GA: 188 QRS: -14 T: 99 INTERPRETIVE STATEMENTS: Sinus bradycardia Nonspecific T wave abnormality Abnormal ECG Compared to ECG 10/30/2008 16:58:33 Sinus rhythm no longer present T-wave abnormality still present Electronically Signed On 08-11-19 11:06:14 CDT by Josue Anderson
[2019-08-11] MEDS: Levofloxacin500mg IV 500 MG/100 ML BAG IV SCH (11:29)
[2019-08-11] MEDS ORDERED: MINERAL OIL 30 ML UCUP PO ONE (13:13)
--- NOTE | 2019-08-11 14:06 | P.CNS ---
Date of Consult: 08/11/19 PC: I was asked to see this 60-year-old male in regards to a possible small- bowel obstruction. HPC: Patient presented emergency room with increasing abdominal pain. Recently ate some ominous. Discharge the pain is severe, located in the upper portion of his abdomen. Has had episodes like this in the past. PMH: Atrophic ablation, diabetes PSHx: Previous surgery years for abdominal hernias SOC: No known allergies SYS REVIEW: No cough, wheeze, shortness of breath. No chest pain or palpitations. Has had episodes like this in the past usually resolved non operatively. O/E awake alert comfortable at the moment HEENT: Nasogastric tube in place and draining Chest: Clear ABD: Soft nontender no guarding or rebound LOCO: Intact DATA: CT scan shows there is a chest partial small-bowel obstruction IMPRESSION: This patient was at earlier today. Says he felt kind of a pull in his abdomen and had a lot of gurgling Since that time. Has felt a whole lot better. PLAN: Will give mineral oil via nasogastric in Dc NG tube. Have patient up ambulate. I feel at this area may have spontaneously resolved. Will follow with you.
--- NOTE | 2019-08-11 15:58 | P.PN ---
Subjective Date of Service: 08/11/19 Chief Complaint: Abdominal distention and discomfort Patient states abdominal pain is much better today. He reports passing gas. He also vomited once this morning. About 200 mL put from the NGT. Review of Systems 10-point ROS is otherwise unremarkable Physical Examination - Vital Signs Temperature: 97.1 F Blood Pressure: 132/68 Pulse: 62 Respirations: 18 Pulse Ox (%): 98 - Physical Exam General: Alert, In no apparent distress, Oriented x3 HEENT: Atraumatic, Normocephalic, Mucous membr. moist/pink, Other (NG-tube to suction in place.) Neck: Supple, JVD not distended, No Thyromegaly Respiratory: Clear to auscultation bilaterally, Normal air movement Cardiovascular: No edema, Regular rate/rhythm, Normal S1 S2, No murmurs Gastrointestinal: Normal bowel sounds, Hyperactive, Distended Musculoskeletal: No clubbing, No swelling, No erythema Integumentary: No rashes Neurological: Normal strength at 5/5 x4 extr, Cranial nerves 3-12 intact, Normal affect Lymphatics: No axilla or inguinal lymphadenopathy - Studies Laboratory Data (last 24 hrs) 08/10/19 21:50: Creatinine 1.10 08/10/19 21:50: WBC 15.3 H, Hgb 15.9, Hct 48.7, Plt Count 176 08/10/19 21:50: Sodium 141, Potassium 3.9, BUN 22 H, Creatinine 1.11, Glucose 112 H, Total Bilirubin 0.7, AST 19, ALT 32, Alkaline Phosphatase 103, Lipase 94 Assessment And Plan - Current Problems (Diagnosis) (1) Small bowel obstruction Current Visit: Yes Status: Acute (2) History of inguinal hernia repair Current Visit: Yes Status: Chronic (3) History of umbilical hernia repair Current Visit: Yes Status: Chronic - Plan Continue medical management. NG-tube to suction Seen by general surgery. Dr. Cadet input appreciated. Ambulate Trial of mineral oil via NGT. Serial abdominal examination.
[2019-08-11] MEDS: ENOXAPARIN 30 MG/0.3 ML SQ SCH (17:00)
[2019-08-11] MEDS: APIXABAN 5 MG TABLET PO SCH (21:21)
[2019-08-12 05:59] LABS: Basophils % 0.5 % (0-1.3); Hematocrit 40.7 % (39.6-49.0); Lymphocytes % 23.5 % (15.3-44.8); MPV 10.1 fL (7.6-11.3); RBC Red Blood Cell Count 4.97 M/uL (4.33-5.43)
[2019-08-12] MEDS: METRONIDAZOLE 500mg IVPB 500 MG/100 ML BAG IV SCH ×2 (06:04→12:00)
[2019-08-12 06:15] LABS: Protime INR 1.35
[2019-08-12 06:18] LABS: Albumin 3.5 g/dL (3.4-5.0); Bilirubin Total 0.8 mg/dL (0.2-1.0); Phosphorus 2.7 mg/dL (2.5-4.9); Potassium 3.7 mmol/L (3.5-5.1); Protein, Total 6.2 g/dL (6.4-8.2)
[2019-08-12] MEDS: ENOXAPARIN 30 MG/0.3 ML SQ SCH (08:30)
[2019-08-12] MEDS: APIXABAN 5 MG TABLET PO SCH (08:32)
[2019-08-12] MEDS: Levofloxacin500mg IV 500 MG/100 ML BAG IV SCH (12:00)
--- NOTE | 2019-08-12 13:32 | P.DS ---
Admission Date: 08/11/19 Discharge Date: 08/12/19 Disposition: ROUTINE DISCHARGE Discharge Condition: GOOD Reason for Admission: Abdominal distention and discomfort Consultations: General Surgery. - Problems (1) Small bowel obstruction Current Visit: Yes Status: Acute (2) History of inguinal hernia repair Current Visit: Yes Status: Chronic (3) History of umbilical hernia repair Current Visit: Yes Status: Chronic Brief History of Present Illness: 68-year-old man with a past medical history diabetes mellitus, history of umbilical hernia status post repair, inguinal hernia status post repair presented to the emergency department with a complaint of abdominal pain and distention. The median done in the ED suggested the presence of small bowel obstruction. NG tube to suction was inserted and patient admitted for further management. Hospital Course: Patient admitted to the medical floor. He was treated with supportive measures including IV hydration, antiemetics as needed, and IV opioids as needed. Patient had minimal output from the NGT. General surgery was consulted, patient was evaluated by Dr. Cadet recommended medical management. His bowel obstruction spontaneously got resolved. NG-tube was removed. Patient had multiple bowel movement. His symptoms resolved. Vital Signs/Physical Exam: Temp Pulse Resp BP Pulse Ox 97.7 F 62 18 134/65 95 08/12/19 08:00 08/12/19 08:00 08/12/19 08:00 08/12/19 08:00 08/12/19 08:00 General: Alert, In no apparent distress, Oriented x3 HEENT: Mucous membr. moist/pink Neck: Supple, JVD not distended Respiratory: Clear to auscultation bilaterally, Normal air movement Cardiovascular: No edema, Regular rate/rhythm, Normal S1 S2 Gastrointestinal: Normal bowel sounds, Soft and benign, Non-distended, No tenderness Musculoskeletal: No swelling, No erythema Integumentary: No rashes Neurological: Normal strength at 5/5 x4 extr, Cranial nerves 3-12 intact Laboratory Data at Discharge: WBC 8.4 K/uL (4.3-10.9) D 08/12/19 05:22 Hgb 13.9 g/dL (13.6-17.9) 08/12/19 05:22 Hct 40.7 % (39.6-49.0) D 08/12/19 05:22 Plt Count 153 K/uL (152-406) 08/12/19 05:22 PT 15.8 SECONDS (9.5-12.5) H 08/12/19 05:22 INR 1.35 08/12/19 05:22 APTT 31.0 SECONDS (24.3-36.9) 08/12/19 05:22 Sodium 145 mmol/L (136-145) 08/12/19 05:22 Potassium 3.7 mmol/L (3.5-5.1) 08/12/19 05:22 BUN 13 mg/dL (7-18) 08/12/19 05:22 Creatinine 1.08 mg/dL (0.55-1.3) 08/12/19 05:22 Glucose 100 mg/dL (74-106) 08/12/19 05:22 Phosphorus 2.7 mg/dL (2.5-4.9) 08/12/19 05:22 Magnesium 2.0 mg/dL (1.8-2.4) 08/12/19 05:22 Total Bilirubin 0.8 mg/dL (0.2-1.0) 08/12/19 05:22 AST 16 U/L (15-37) 08/12/19 05:22 ALT 24 U/L (12-78) 08/12/19 05:22 Alkaline Phosphatase 85 U/L (45-117) 08/12/19 05:22 Lipase 86 U/L (73-393) 08/12/19 05:22 Home Medications: Apixaban [Eliquis *] 5 mg PO DAILY 08/11/19 Aspirin Chewable [Aspirin Chewable*] 81 mg PO DAILY 08/11/19 Atorvastatin Calcium [Lipitor*] 10 mg PO DAILY 08/11/19 Insulin Aspart [Novolog] 7 unit SQ TIDWM 08/11/19 Insulin Degludec [Tresiba Flextouch U-200] 36 unit SQ DAILY 08/11/19 Lisinopril 5 mg PO DAILY 08/11/19 Metoprolol Succinate [Toprol Xl*] 50 mg PO DAILY 08/11/19 Diet: ADA Activity: Ad mic
[2019-08-12 13:43] VITALS: BP 133/57; TEMP 97.8
--- NOTE | 2019-08-12 13:53 | RAD REPORT ---
EXAM DESCRIPTION: CT Abdomen and Pelvis With Intravenous Contrast CLINICAL HISTORY: The patient is 68 years old and is Male; abdominal pain TECHNIQUE: Axial computed tomography images of the abdomen and pelvis with intravenous contrast. S agittal and coronal reformatted images were created and reviewed. This CT exam was performed using one or more of the following dose reduction techniques: automated exposure control, adjustment of t he mA and/or kV according to patient size, and/or use of iterative reconstruction technique. COMPARISON: No relevant prior studies available. FINDINGS: LUNG BASES: Minimal dependent densities in the lung bases are present. ABDOMEN: LIVER: Unremarkable. No mass. GALLBLADDER AND BILE DUCTS: No calcified stones. No ductal dilation. PANCREAS: No ductal dilation. No mass. SPLEEN: Unremarkable. ADRENALS: Unremarkable. No mass. KIDNEYS AND URETERS: Unremarkable. No solid mass. No hydronephrosis. STOMACH AND BOWEL: The stomach is well distended. Several small bowel loops within the central a bdomen with dilated fluid-filled. Transition to normal caliber bowel is located within the mid abdome n. Stool is present throughout colon. Scattered colonic diverticula are noted without surrounding inf lammation. PELVIS: APPENDIX: The appendix is normal in caliber without surrounding inflammation. BLADDER: Unremarkable. No mass. REPRODUCTIVE: Unremarkable as visualized. ABDOMEN and PELVIS: INTRAPERITONEAL SPACE: Unremarkable. No free air. No significant fluid collection. BONES/JOINTS: No acute fracture. SOFT TISSUES: Evidence of prior bilateral inguinal hernia repair is noted. VASCULATURE: Atherosclerosis of the vasculature is present. The infrarenal aorta measures 2.8 cm . Recommend follow-up in 5 years. No abdominal aortic aneurysm. LYMPH NODES: Unremarkable. No enlarged lymph nodes. IMPRESSION: Findings suggestive of a developing small bowel obstruction. Electronically signed by: Sri Mukherjee MD 08/10/2019 11:47 PM CDT Due to temporary technical issues with the PACS/Fluency reporting system, reports are being signed by the in house radiologist as a courtesy to ensure prompt reporting. The interpreting radiologist is f ully responsible for the content of the report.
== END 2019-08-12 15:01 | disposition home or self-care (01) | DRG 390 ==
LOC: ER 21:00 → ERHOLD 08-11 01:07 → 4TH 08-11 01:40
PROVIDERS: ADMIT Hospitalist; ATTEND Hospitalist
DX: K56.609 Unspecified intestinal obstruction, unspecified as to partial versus complete obstruction (principal); E11.9 Type 2 diabetes mellitus without complications; Z98.890 Other specified postprocedural states; I48.91 Unspecified atrial fibrillation; Z79.82 Long term (current) use of aspirin; Z85.51 Personal history of malignant neoplasm of bladder; I25.2 Old myocardial infarction; Z95.5 Presence of coronary angioplasty implant and graft
CPT/HCPCS: 36415; 74177; 76705; 80048; 80053; 80076; 82962; 83690; 83735; 84100; 84484; 85025; 85610; 85730; 93005; 96361; 96365; 96368; 96375; 99285; J0744; J1170; J1650; J2405; J7030; Q9967